=== PATIENT | female | born 1960 | race Two or more races ===

== ENCOUNTER 2019-12-23 09:57 | Inpatient (IN) | payer OTHER ==
[~2019-12-23] VITALS: Ht 160 cm; Wt 104.3 kg
[2019-12-23] MEDS ORDERED: COZAAR100 MG (10:15)
[2019-12-23] MEDS ORDERED: TENORMIN25 MG (10:15)
[2019-12-23] MEDS ORDERED: HYDROCHLOROTHIA25 MG (10:16)
== END 2020-01-04 18:18 | disposition home or self-care (01) | DRG 698 ==
LOC: ER 09:57 → MEDI 19:32 → SEC-K 19:32 → MEDI 20:40
PROVIDERS: ADMIT Specialist
PROC: BT4JZZZ Ultrasonography of Kidneys and Bladder (ICD-10-PCS; 2019-12-23)
PROC: B44HZZZ Ultrasonography of Bilateral Lower Extremity Arteries (ICD-10-PCS; 2019-12-23)
PROC: B246ZZZ Ultrasonography of Right and Left Heart (ICD-10-PCS; 2019-12-23)
PROC: BW28ZZZ Computerized Tomography (CT Scan) of Head (ICD-10-PCS; 2019-12-23)
PROC: B345ZZZ Ultrasonography of Bilateral Common Carotid Arteries (ICD-10-PCS; 2019-12-23)
PROC: 0T9B70Z Drainage of Bladder with Drainage Device, Via Natural or Artificial Opening (ICD-10-PCS; 2019-12-23)
PROC: 4A12X4Z Monitoring of Cardiac Electrical Activity, External Approach (ICD-10-PCS; 2019-12-23)
PROC: 02HV33Z Insertion of Infusion Device into Superior Vena Cava, Percutaneous Approach (ICD-10-PCS; 2019-12-24)
PROC: BW40ZZZ Ultrasonography of Abdomen (ICD-10-PCS; 2019-12-25)
PROC: BW40ZZZ Ultrasonography of Abdomen (ICD-10-PCS; 2019-12-25)
PROC: BW21Y0Z Computerized Tomography (CT Scan) of Abdomen and Pelvis using Other Contrast, Unenhanced and Enhanced (ICD-10-PCS; 2019-12-27)
PROC: BW21YZZ Computerized Tomography (CT Scan) of Abdomen and Pelvis using Other Contrast (ICD-10-PCS; 2019-12-28)
PROC: 0FBG3ZX Excision of Pancreas, Percutaneous Approach, Diagnostic (ICD-10-PCS; principal; 2019-12-30)
DX: E11.22 Type 2 diabetes mellitus with diabetic chronic kidney disease (principal); I50.41 Acute combined systolic (congestive) and diastolic (congestive) heart failure; I13.0 Hypertensive heart and chronic kidney disease with heart failure and stage 1 through stage 4 chronic kidney disease, or unspecified chronic kidney disease; K86.2 Cyst of pancreas; N17.8 Other acute kidney failure; E11.65 Type 2 diabetes mellitus with hyperglycemia; E11.59 Type 2 diabetes mellitus with other circulatory complications; K80.80 Other cholelithiasis without obstruction; K76.0 Fatty (change of) liver, not elsewhere classified; K86.89 Other specified diseases of pancreas; K52.89 Other specified noninfective gastroenteritis and colitis; N18.3 Chronic kidney disease, stage 3 (moderate); D69.59 Other secondary thrombocytopenia; R31.29 Other microscopic hematuria; E86.0 Dehydration; E87.8 Other disorders of electrolyte and fluid balance, not elsewhere classified; E66.09 Other obesity due to excess calories; Z79.4 Long term (current) use of insulin